=== PATIENT | female | born 1965 | race African-American/Black ===

== ENCOUNTER 2016-09-12 19:20 | Emergency (ER) | payer OTHER ==
[~2016-09-12] VITALS: Ht 149.9 cm; Wt 61.0 kg
[~2016-09-12 19:20] MED LIST: AMOXICILLIN875 MG OR; ANTIVERT25 MG PO; ASA LO-DOSE81 MG OR; ASPIRIN81 MG OR; CIPRO500 MG OR; IMODIUM OR; LORTAB 5 OR; NAPROSYN500 MG OR; NAPROXEN ER500 MG OR; PROMETHAZINE25 MG OR; TRAMADOL HCL50 MG PO; ULTRACET OR; ULTRAM50 MG OR
[2016-09-12 20:47] LABS: HEMATOCRIT 39.5 % (37.0-47.0); HEMOGLOBIN 13.2 g/dl (12.0-16.0); IMMATURE GRANULOCYTES 0.3 % (0.0-1.0); MEAN CELL VOLUME 79.2 fL CALC (80.0-100.0); MEAN CORPUSCULAR HGB 26.5 pG CALC (26.0-32.0); MEAN CORPUSCULAR HGB CONC 33.4 g/L CALC (32.0-36.0); NEUT# 4.29 thou/uL (2.00-7.15); RED BLOOD COUNT 4.99 mill/uL (4.20-5.60); RED CELL DISTRI WIDTH 15.9 % (11.5-15.5)
[2016-09-12 21:10] LABS: ALBUMIN 3.8 g/dL (3.2-5.0); ALKALINE PHOSPHATASE 134 u/l (38-126); ANION GAP 17 (6-22 (CALC)); BILIRUBIN, TOTAL 0.3 mg/dL (0.0-1.4); BUN 14 mg/dL (7-17); BUN/CREATININE RATIO 19 (12-20 (CALC)); CALCIUM 9.1 mg/dL (8.4-10.2); CARBON DIOXIDE 24 mmol/l (22-30); CHLORIDE 107 mmol/l (95-108); CREATININE 0.7 mg/dL (0.5-1.0); GFR > 60 ML/MIN (>=60 (CALC)); GFR FOR AFR.AMER. > 60 ML/MIN (>=60 (CALC)); GLUCOSE 97 mg/dL (65-105); POTASSIUM 3.2 mmol/l (3.5-5.1); SGOT/AST 22 u/l (14-36); SGPT/ALT 25 u/l (9-52); SODIUM 144 mmol/l (137-146); TOTAL PROTEIN 7.2 g/dL (6.3-8.2)
[2016-09-12 21:21] LABS: MYOGLOBIN 26 ng/mL (0 - 62)
[2016-09-13 08:38] VITALS: BP 155/98
== END 2016-09-12 23:50 | disposition left against medical advice (07) | DRG 313 ==
LOC: ED 19:20
PROVIDERS: Emergency Medicine
DX: R07.9 Chest pain, unspecified (principal); I10 Essential (primary) hypertension; F17.210 Nicotine dependence, cigarettes, uncomplicated

== ENCOUNTER 2017-05-12 20:00 | Emergency (ER) | payer SELFPAY ==
[~2017-05-12] VITALS: Ht 149.9 cm; Wt 56.0 kg
[~2017-05-12 20:00] MED LIST changes: -ASPIRIN81 MG OR; +ASPIRIN81 MG PO
[2017-05-12 20:52] LABS: HEMATOCRIT 40.1 % (37.0-47.0); HEMOGLOBIN 13.4 g/dl (12.0-16.0); IMMATURE GRANULOCYTES 0.5 % (0.0-1.0); MEAN CORPUSCULAR HGB 27.4 pG CALC (26.0-32.0); MEAN CORPUSCULAR HGB CONC 33.4 g/L CALC (32.0-36.0); NEUT# 5.33 thou/uL (2.00-7.15); RED BLOOD COUNT 4.89 mill/uL (4.20-5.60); RED CELL DISTRI WIDTH 16.8 % (11.5-15.5)
[2017-05-12 21:16] LABS: ALBUMIN 4.1 g/dL (3.2-5.0); ALKALINE PHOSPHATASE 134 u/l (38-126); ANION GAP 16 (6-22 (CALC)); BILIRUBIN, TOTAL 0.9 mg/dL (0.0-1.4); BUN 11 mg/dL (7-17); BUN/CREATININE RATIO 16 (12-20 (CALC)); CALCIUM 9.5 mg/dL (8.4-10.2); CARBON DIOXIDE 22 mmol/l (22-30); CHLORIDE 107 mmol/l (95-108); CREATININE 0.7 mg/dL (0.5-1.0); GFR > 60 ML/MIN (>=60 (CALC)); GFR FOR AFR.AMER. > 60 ML/MIN (>=60 (CALC)); GLUCOSE 83 mg/dL (65-105); POTASSIUM 4.5 mmol/l (3.5-5.1); SGOT/AST 30 u/l (14-36); SGPT/ALT 16 u/l (9-52); SODIUM 141 mmol/l (137-146); TOTAL PROTEIN 7.2 g/dL (6.3-8.2)
[2017-05-12] MEDS ORDERED: NAPROSYN500 MG PO (21:57)
[2017-05-12] MEDS ORDERED: FLEXERIL PO (21:57)
[2017-05-12 22:34] VITALS: BP 169/81
== END 2017-05-12 22:34 | disposition home or self-care (01) | DRG 93 ==
LOC: ED 20:00
PROVIDERS: Emergency Medicine
DX: R25.2 Cramp and spasm (principal); F17.210 Nicotine dependence, cigarettes, uncomplicated; M79.605 Pain in left leg; R50.9 Fever, unspecified

== ENCOUNTER 2017-12-21 09:56 | Emergency (ER) | payer SELFPAY ==
[~2017-12-21] VITALS: Ht 149.9 cm; Wt 55.0 kg
[~2017-12-21 09:56] MED LIST changes: +FLEXERIL PO; +NAPROSYN500 MG PO
[2017-12-21] MEDS ORDERED: TENORMIN50 MG PO (10:40)
[2017-12-21 11:04] LABS: HEMATOCRIT 42.7 % (37.0-47.0); HEMOGLOBIN 14.1 g/dl (12.0-16.0); IMMATURE GRANULOCYTES 1.2 % (0.0-1.0); MEAN CELL VOLUME 82.4 fL CALC (80.0-100.0); MEAN CORPUSCULAR HGB 27.2 pG CALC (26.0-32.0); NEUT# 6.45 thou/uL (2.00-7.15); RED BLOOD COUNT 5.18 mill/uL (4.20-5.60)
[2017-12-21 11:24] LABS: ALBUMIN 4.1 g/dL (3.2-5.0); ALKALINE PHOSPHATASE 166 u/l (38-126); ANION GAP 17 (6-22 (CALC)); BILIRUBIN, TOTAL 0.4 mg/dL (0.0-1.4); BUN 8 mg/dL (7-17); BUN/CREATININE RATIO 15 (12-20 (CALC)); CARBON DIOXIDE 26 mmol/l (22-30); CHLORIDE 104 mmol/l (95-108); CREATININE 0.6 mg/dL (0.5-1.0); GFR > 60 ML/MIN (>=60 (CALC)); GFR FOR AFR.AMER. > 60 ML/MIN (>=60 (CALC)); POTASSIUM 3.7 mmol/l (3.5-5.1); SGOT/AST 28 u/l (14-36); SGPT/ALT 42 u/l (9-52); SODIUM 143 mmol/l (137-146); TOTAL PROTEIN 7.4 g/dL (6.3-8.2)
[2017-12-21] MEDS ORDERED: PROVENTIL HFA IN (11:55)
[2017-12-21] MEDS ORDERED: ZITHROMAX250 MG PO (11:55)
[2017-12-21 12:05] VITALS: BP 157/90
== END 2017-12-21 12:05 | disposition home or self-care (01) | DRG 203 ==
LOC: ED 09:56
PROVIDERS: Emergency Medicine
DX: J40 Bronchitis, not specified as acute or chronic (principal); R20.2 Paresthesia of skin; F17.210 Nicotine dependence, cigarettes, uncomplicated; I10 Essential (primary) hypertension

== ENCOUNTER 2018-08-14 07:27 | Emergency (ER) | payer SELFPAY ==
[~2018-08-14] VITALS: Ht 149.9 cm; Wt 50.0 kg
[~2018-08-14 07:27] MED LIST changes: +PROVENTIL HFA IN; +TENORMIN50 MG PO; +ZITHROMAX250 MG PO
[2018-08-14] MEDS ORDERED: DICLOFENAC50 MG PO (07:42)
[2018-08-14 07:49] VITALS: BP 166/85
== END 2018-08-14 07:56 | disposition home or self-care (01) | DRG 607 ==
LOC: ED 07:27
DX: L84 Corns and callosities (principal); I10 Essential (primary) hypertension; F17.200 Nicotine dependence, unspecified, uncomplicated

== ENCOUNTER 2018-12-10 10:33 | Emergency (ER) | payer SELFPAY ==
[~2018-12-10] VITALS: Ht 149.9 cm; Wt 58.0 kg
[~2018-12-10 10:33] MED LIST changes: +DICLOFENAC50 MG PO
[2018-12-10] MEDS ORDERED: PREDNISONE20 MG PO (11:36)
[2018-12-10] MEDS ORDERED: FLEXERIL5 M1 PO (11:36)
[2018-12-10 11:40] VITALS: BP 166/98
== END 2018-12-10 11:40 | disposition home or self-care (01) | DRG 563 ==
LOC: ED 10:33
DX: S46.911A Strain of unspecified muscle, fascia and tendon at shoulder and upper arm level, right arm, initial encounter (principal); S16.1XXA Strain of muscle, fascia and tendon at neck level, initial encounter; M62.838 Other muscle spasm; L02.411 Cutaneous abscess of right axilla; I10 Essential (primary) hypertension; F17.210 Nicotine dependence, cigarettes, uncomplicated; X50.0XXA Overexertion from strenuous movement or load, initial encounter; Y93.89 Activity, other specified

== ENCOUNTER 2021-02-07 08:20 | Emergency (ER) | payer OTHER ==
[~2021-02-07] VITALS: Ht 149.9 cm; Wt 65.4 kg
[~2021-02-07 08:20] MED LIST changes: +FLEXERIL5 M1 PO; +PREDNISONE20 MG PO
[2021-02-07] MEDS ORDERED: HYZAAR1 TA1 PO (08:43)
[2021-02-07] MEDS ORDERED: [UNRECOGNIZED DRUG - OTHER] PO (08:44)
[2021-02-07 09:10] LABS: HEMATOCRIT 40.7 % (37.0-47.0); HEMOGLOBIN 13.4 g/dl (12.0-16.0); IMMATURE GRANULOCYTES 0.5 % (0.0-5.0); MEAN CELL VOLUME 81.7 fL CALC (80.0-100.0); MEAN CORPUSCULAR HGB 26.9 pG CALC (26.0-32.0); MEAN CORPUSCULAR HGB CONC 32.9 g/dL CAL (32.0-36.0); NEUT# 4.92 thou/uL (2.00-7.15); RED BLOOD COUNT 4.98 mill/uL (4.20-5.60); RED CELL DISTRI WIDTH 15.7 % (11.5-15.5)
[2021-02-07 09:26] LABS: ALKALINE PHOSPHATASE 142 u/l (38-126); AMYLASE 77 u/l (30-110); ANION GAP 14 (6-22 (CALC)); BILIRUBIN, TOTAL 0.4 mg/dL (0.0-1.4); BUN 22 mg/dL (7-17); BUN/CREATININE RATIO 27 (12-20 (CALC)); CARBON DIOXIDE 25 mmol/l (22-30); CHLORIDE 103 mmol/l (95-108); CREATININE 0.8 mg/dL (0.5-1.0); ETHYL ALCOHOL 0 mg/dl (0-30); GFR > 60 ML/MIN (>=60 (CALC)); GFR FOR AFR.AMER. > 60 ML/MIN (>=60 (CALC)); LIPASE 162 u/l (23-300); POTASSIUM 3.6 mmol/l (3.5-5.1); SGOT/AST 29 u/l (14-36); SODIUM 139 mmol/l (137-146); TOTAL PROTEIN 7.8 g/dL (6.3-8.2)
[2021-02-07 09:51] LABS: URINE BILIRUBIN - DIPSTICK NEGATIVE (NEGATIVE); URINE BLOOD DIPSTICK TRACE-INTACT (NEGATIVE); URINE COLOR YELLOW; URINE GLUCOSE - DIPSTICK NEGATIVE (NEGATIVE); URINE KETONE NEGATIVE (NEGATIVE); URINE PROTEIN - DIPSTICK NEGATIVE (NEG-TRACE); URINE UROBILINOGEN - DIPSTICK 0.2 E.U./dL (0.2)
[2021-02-07 09:52] LABS: URINE LEUK ESTERASE MODERATE (NEGATIVE); URINE NITRITE - DIPSTICK NEGATIVE (Negative)
[2021-02-07 09:53] LABS: URINE EPITHELIAL CELLS MODERATE EPI/hpf (0-FEW); URINE RBC 0-2 RBC/hpf (0-5)
[2021-02-07 09:54] LABS: URINE BACTERIA MODERATE hpf
[2021-02-07] MEDS ORDERED: BACTRIM DS1 TAB PO (11:14)
[2021-02-07] MEDS ORDERED: PYRIDIUM200 MG PO (11:14)
[2021-02-07 11:25] VITALS: BP 106/67
== END 2021-02-07 11:30 | disposition home or self-care (01) | DRG 690 ==
LOC: ED 08:20
DX: N39.0 Urinary tract infection, site not specified (principal); D25.9 Leiomyoma of uterus, unspecified; I10 Essential (primary) hypertension; F17.200 Nicotine dependence, unspecified, uncomplicated
CPT/HCPCS: Q9967

== ENCOUNTER 2021-11-07 08:46 | Emergency (ER) | payer OTHER ==
[~2021-11-07] VITALS: Ht 149.9 cm; Wt 62.0 kg
[~2021-11-07 08:46] MED LIST changes: +BACTRIM DS1 TAB PO; +HYZAAR1 TA1 PO; +PYRIDIUM200 MG PO; +[UNRECOGNIZED DRUG - OTHER] PO
[2021-11-07 09:11] LABS: HEMATOCRIT 42.6 % (37.0-47.0); HEMOGLOBIN 13.8 g/dl (12.0-16.0); IMMATURE GRANULOCYTES 0.4 % (0.0-5.0); MEAN CELL VOLUME 85.2 fL CALC (80.0-100.0); MEAN CORPUSCULAR HGB 27.6 pG CALC (26.0-32.0); MEAN CORPUSCULAR HGB CONC 32.4 g/dL CAL (32.0-36.0); NEUT# 4.36 thou/uL (2.00-7.15); RED CELL DISTRI WIDTH 15.7 % (11.5-15.5); URINE BILIRUBIN - DIPSTICK NEGATIVE (NEGATIVE); URINE BLOOD DIPSTICK SMALL (NEGATIVE); URINE COLOR YELLOW; URINE GLUCOSE - DIPSTICK NEGATIVE (NEGATIVE); URINE KETONE NEGATIVE (NEGATIVE); URINE LEUK ESTERASE TRACE (NEGATIVE); URINE PROTEIN - DIPSTICK NEGATIVE (NEG-TRACE); URINE SPECIFIC GRAVITY >=1.030; URINE UROBILINOGEN - DIPSTICK 0.2 E.U./dL (0.2)
[2021-11-07 09:13] LABS: URINE NITRITE - DIPSTICK NEGATIVE (Negative)
[2021-11-07 09:19] LABS: URINE SQUAMOUS EPITHELIAL CELL MODERATE EPI/hpf (0-FEW)
[2021-11-07 09:23] LABS: ALBUMIN 4.1 g/dL (3.2-5.0); ALKALINE PHOSPHATASE 154 u/l (38-126); ANION GAP 10 (6-22 (CALC)); BILIRUBIN, TOTAL 0.3 mg/dL (0.0-1.4); BUN 23 mg/dL (7-17); BUN/CREATININE RATIO 33 (12-20 (CALC)); CARBON DIOXIDE 27 mmol/l (22-30); CHLORIDE 107 mmol/l (95-108); CREATININE 0.7 mg/dL (0.5-1.0); GFR > 60 ML/MIN (>=60 (CALC)); GFR FOR AFR.AMER. > 60 ML/MIN (>=60 (CALC)); LIPASE 196 u/l (23-300); POTASSIUM 3.6 mmol/l (3.5-5.1); SGOT/AST 39 u/l (14-36); SODIUM 141 mmol/l (137-146); TOTAL PROTEIN 7.3 g/dL (6.3-8.2)
[2021-11-07] MEDS ORDERED: MIRALAX17 GM PO (09:32)
[2021-11-07] MEDS ORDERED: DULCOLAX5 MG PO (09:32)
[2021-11-07 09:38] VITALS: BP 120/82
== END 2021-11-07 09:51 | disposition home or self-care (01) | DRG 392 ==
LOC: ED 08:46
PROVIDERS: Family Medicine
DX: K59.00 Constipation, unspecified (principal); I10 Essential (primary) hypertension; F17.200 Nicotine dependence, unspecified, uncomplicated

== ENCOUNTER 2022-04-18 08:30 | Emergency (ER) | payer OTHER ==
[2022-04-18] VITALS (13 sets, daily range): BP systolic 51–118; BP diastolic 38–82
[~2022-04-18] VITALS: Ht 149.9 cm; Wt 68.7 kg
[~2022-04-18 08:30] MED LIST changes: +DULCOLAX5 MG PO; +MIRALAX17 GM PO
[2022-04-18 09:27] LABS: HEMATOCRIT 41.1 % (37.0-47.0); IMMATURE GRANULOCYTES 0.4 % (0.0-5.0); MEAN CORPUSCULAR HGB 27.1 pG CALC (26.0-32.0); MEAN CORPUSCULAR HGB CONC 34.1 g/dL CAL (32.0-36.0); NEUT# 4.75 thou/uL (2.00-7.15); RED BLOOD COUNT 5.16 mill/uL (4.20-5.60); RED CELL DISTRI WIDTH 15.7 % (11.5-15.5)
[2022-04-18 09:28] LABS: MEAN CELL VOLUME 79.7 fL CALC (80.0-100.0)
[2022-04-18 09:53] LABS: ALBUMIN 4.2 g/dL (3.2-5.0); ALKALINE PHOSPHATASE 147 u/l (38-126); ANION GAP 14 (6-22 (CALC)); BILIRUBIN, TOTAL 0.3 mg/dL (0.0-1.4); BUN 11 mg/dL (7-17); BUN/CREATININE RATIO 14 (12-20 (CALC)); CARBON DIOXIDE 24 mmol/l (22-30); CHLORIDE 103 mmol/l (95-108); CREATININE 0.8 mg/dL (0.5-1.0); GFR FOR AFR.AMER. > 60 ML/MIN (>=60 (CALC)); GFR OTHER RACES > 60 ML/MIN (>=60 (CALC)); POTASSIUM 3.3 mmol/l (3.5-5.1); SGOT/AST 37 u/l (14-36); SODIUM 138 mmol/l (137-146); TOTAL PROTEIN 7.7 g/dL (6.3-8.2)
[2022-04-18 10:05] LABS: MYOGLOBIN 69 ng/mL (0 - 62)
[2022-04-18 10:22] LABS: D-DIMER 0.94 mg/L (0.19-0.60)
[2022-04-18 10:31] LABS: ACT PARTIAL THROMBO TIME 27.4 SECONDS (20.0-32.5); PROTHROMBIN TIME 10.3 SECONDS (9.0-12.5)
[2022-04-18 10:47] LABS: URINE BILIRUBIN - DIPSTICK NEGATIVE (NEGATIVE); URINE BLOOD DIPSTICK SMALL (NEGATIVE); URINE COLOR YELLOW; URINE GLUCOSE - DIPSTICK NEGATIVE (NEGATIVE); URINE KETONE NEGATIVE (NEGATIVE); URINE PROTEIN - DIPSTICK NEGATIVE (NEG-TRACE); URINE UROBILINOGEN - DIPSTICK 0.2 E.U./dL (0.2)
[2022-04-18 10:48] LABS: URINE LEUK ESTERASE SMALL (NEGATIVE); URINE NITRITE - DIPSTICK NEGATIVE (Negative)
[2022-04-18 11:07] LABS: URINE BACTERIA FEW hpf; URINE SQUAMOUS EPITHELIAL CELL FEW EPI/hpf (0-FEW); URINE WBC 0-2 WBC/hpf (0-5)
== END 2022-04-18 11:48 | disposition home or self-care (01) | DRG 310 ==
LOC: ED 08:30
PROVIDERS: Family Medicine
DX: R00.2 Palpitations (principal); I10 Essential (primary) hypertension; Z72.0 Tobacco use; B96.20 Unspecified Escherichia coli [E. coli] as the cause of diseases classified elsewhere
CPT/HCPCS: Q9967